=== PATIENT | female | born 1935 | race Caucasian/White ===

== ENCOUNTER 2020-09-26 11:20 | Inpatient (IN) | payer MEDICARE ==
[~2020-09-26] VITALS: Ht 152.4 cm; Wt 59.0 kg
[2020-09-26] MEDS ORDERED: MORPHINE SULFATE INJ 4 MG/ML INJ 1ML IV NR (12:15)
[2020-09-26] MEDS ORDERED: ONDANSETRON HCL INJ 2MG/ML 2ML 2 MG/ML VIAL IV NR (12:15)
[2020-09-26 12:45] LABS: BASOPHILS % 0.6 % (0.0-1.0); EOSINOPHILS # (AUTO) 0.2 (0.0-0.4); EOSINOPHILS % 3.3 % (0.0-6.0); HEMATOCRIT 25.3 % (34.2-44.1); HEMOGLOBIN 12.2 g/dL (12.0-16.0); LYMPHOCYTES # (AUTO) 0.6 (1.0-3.2); LYMPHOCYTES % 11.8 % (18.0-39.1); MEAN CORPUSCULAR HGB CONC 48.2 g/dL (31-35); MEAN CORPUSCULAR VOLUME 95.5 fL (81-99); MONOCYTES # (AUTO) 0.4 (0.2-0.8); MONOCYTES % 8.5 % (4.4-11.3); NEUTROPHILS # (AUTO) 3.6 (2.1-6.9); NEUTROPHILS % 75.4 % (38.7-80.0); PLATELET COUNT 253 x10e3/uL (140-360); RED BLOOD COUNT 2.65 x10e6/uL (3.6-5.1)
[2020-09-26 13:02] LABS: INR 1.48; PARTIAL THROMBOPLASTIN TIME 43.7 seconds (23.8-35.5); PROTHROMBIN TIME 18.6 seconds (11.9-14.5)
[2020-09-26 14:21] LABS: CLARITY,URINE SL CLOUDY (CLEAR); COLOR,URINE YELLOW (YELLOW); KETONES,URINE TRACE (NEGATIVE); LEUKOCYTE ESTERASE ,URINE SMALL (NEGATIVE); NITRITE,URINE NEGATIVE (NEGATIVE); PROTEIN,URINE DIPSTICK TRACE (NEGATIVE); URINE UROBILINOGEN 0.2 mg/dL (0.2 - 1)
[2020-09-26 14:43] LABS: BACTERIA,URINE MANY /HPF
[2020-09-26 14:44] LABS: EPITHELIAL CELLS,URINE FEW /LPF
[2020-09-26] MEDS ORDERED: HYDROMORPHONE 1MG/1ML INJ IV NR (14:44)
[2020-09-26] MEDS ORDERED: ONDANSETRON HCL INJ 2MG/ML 2ML 2 MG/ML VIAL IV PRN (15:15)
[2020-09-26 17:12] LABS: ALANINE AMINOTRANSFERASE 56 IU/L (0-55); ALBUMIN 3.3 g/dL (3.5-5.0); ALBUMIN/GLOBULIN RATIO 1.1 (0.8-2.0); ALKALINE PHOSPHATASE 83 IU/L (40-150); BLOOD UREA NITROGEN 16 mg/dL (7-26); BUN/CREATININE RATIO 20 (6-25); CALCIUM 8.8 mg/dL (8.4-10.2); CARBON DIOXIDE 24 mmol/L (22-29); CHLORIDE 103 mmol/L (98-107); CREATINE KINASE 56 IU/L (29-168); CREATININE, SERUM 0.82 mg/dL (0.57-1.11); EST GLOMERULAR FILTRATION RATE > 60 ML/MIN (60-); GLUCOSE 115 mg/dL (74-118); MAGNESIUM 2.2 MG/DL (1.3-2.1); SODIUM 138 mmol/L (136-145)
[2020-09-26 17:31] LABS: THYROID STIMULATING HORMONE 5.198 uIU/mL (0.350-4.940)
[2020-09-26] MEDS: HYDROMORPHONE 1MG/1ML INJ IV PRN (20:12)
[2020-09-27] MEDS: HYDROMORPHONE 1MG/1ML INJ IV PRN ×4 (00:05→20:46)
[2020-09-27 03:23] LABS: CREATINE KINASE MB 0.8 ng/mL (0-5.0)
[2020-09-27 06:44] LABS: BASOPHILS % 0.3 % (0.0-1.0); EOSINOPHILS % 0.4 % (0.0-6.0); HEMATOCRIT 24.6 % (34.2-44.1); HEMOGLOBIN 12.3 g/dL (12.0-16.0); LYMPHOCYTES # (AUTO) 0.7 (1.0-3.2); LYMPHOCYTES % 9.8 % (18.0-39.1); MEAN CORPUSCULAR HEMOGLOBIN 47.9 pg (28-32); MEAN CORPUSCULAR VOLUME 95.7 fL (81-99); MONOCYTES # (AUTO) 0.8 (0.2-0.8); MONOCYTES % 10.3 % (4.4-11.3); NEUTROPHILS # (AUTO) 5.8 (2.1-6.9); NEUTROPHILS % 78.5 % (38.7-80.0); PLATELET COUNT 255 x10e3/uL (140-360); RED BLOOD COUNT 2.57 x10e6/uL (3.6-5.1); RED CELL DISTRIBUTION WIDTH 13.2 % (11.7-14.4)
[2020-09-27 07:19] LABS: ALANINE AMINOTRANSFERASE 72 IU/L (0-55); ALBUMIN 3.2 g/dL (3.5-5.0); ALBUMIN/GLOBULIN RATIO 0.9 (0.8-2.0); ALKALINE PHOSPHATASE 94 IU/L (40-150); ANION GAP 13.7 mmol/L (8-16); BLOOD UREA NITROGEN 19 mg/dL (7-26); BUN/CREATININE RATIO 24 (6-25); CALCIUM 9.2 mg/dL (8.4-10.2); CARBON DIOXIDE 24 mmol/L (22-29); CHLORIDE 103 mmol/L (98-107); CHOL/HDL RATIO 2.9 (3.0-3.6); CHOLESTEROL 188 MD/DL (0-199); CREATININE, SERUM 0.78 mg/dL (0.57-1.11); EST GLOMERULAR FILTRATION RATE > 60 ML/MIN (60-); GLUCOSE 102 mg/dL (74-118); HDL CHOLESTEROL 65 MG/DL (40-60); LDL CHOLESTEROL 107 MG/DL (60-130); POTASSIUM 4.7 mmol/L (3.5-5.1); SODIUM 136 mmol/L (136-145); TRIGLYCERIDES 78 MG/DL (0-149)
[2020-09-27 07:41] LABS: CREATINE KINASE MB 0.9 ng/mL (0-5.0)
[2020-09-27] MEDS ORDERED: PANTOPRAZOLE SO40 MG PO (08:48)
[2020-09-27] MEDS ORDERED: ATORVASTATIN CA20 MG PO (08:57)
[2020-09-27] MEDS ORDERED: LOPRESSOR25 MG PO (08:57)
[2020-09-27] MEDS ORDERED: CLOBETASOL1 EA/15 GM PO (08:57)
[2020-09-27] MEDS ORDERED: ALPRAZOLAM0.5 MG PO (08:57)
[2020-09-27] MEDS ORDERED: FUROSEMIDE20 MG PO (08:57)
[2020-09-27] MEDS ORDERED: OMEPRAZOLE40 MG PO (08:57)
[2020-09-27] MEDS ORDERED: AMIODARONE HCL200 MG PO (08:57)
[2020-09-27] MEDS ORDERED: FLUVOXAMINE MAL50 MG PO (08:57)
[2020-09-27] MEDS ORDERED: SUCRALFATE1 GM PO (08:57)
[2020-09-27] MEDS ORDERED: AMITRIPTYLINE H50 MG PO (08:57)
[2020-09-27] MEDS: PANTOPRAZOLE SOD 40 MG TABEC PO SCH (09:00)
[2020-09-27] MEDS: ALPRAZOLAM 0.5 MG TAB PO SCH (09:00)
[2020-09-27] MEDS: METOPROLOL TARTRATE 25 MG TAB PO SCH ×2 (09:00→17:00)
[2020-09-27] MEDS: FUROSEMIDE 20 MG TAB PO SCH (09:00)
[2020-09-27] MEDS: AMIODARONE HCL 200 MG TAB PO SCH (09:00)
[2020-09-27] MEDS: SUCRALFATE 1 GM TAB PO SCH ×3 (11:30→20:46)
[2020-09-27] MEDS ORDERED: CEFTRIAXONE SOD 2 GM/100 ML ML IV SCH (12:00)
[2020-09-27] MEDS ORDERED: ONDANSETRON HCL INJ 2MG/ML 2ML 2 MG/ML VIAL IV PRN (12:00)
[2020-09-27] MEDS ORDERED: DOCUSATE SODIUM 100 MG CAP PO PRN (12:00)
[2020-09-27] MEDS ORDERED: ACETAMINOPHEN 325 MG TAB PO PRN (12:00)
[2020-09-27] MEDS: CEFTRIAXONE SOD 1 GM in SODIUM CHLORIDE 0.9% 50ML 50 ML IV SCH (12:15)
[2020-09-27 14:27] VITALS: BP 150/72
[2020-09-27 14:39] VITALS: BP 150/72
[2020-09-27 16:50] VITALS: BP 108/63
[2020-09-27 16:51] LABS: CREATINE KINASE MB 1.4 ng/mL (0-5.0)
[2020-09-27 20:00] VITALS: BP 125/62
[2020-09-27 20:33] VITALS: BP 108/63
[2020-09-27] MEDS: AMITRIPTYLINE HCL 25 MG TAB PO SCH (20:46)
[2020-09-27] MEDS: ATORVASTATIN 20 MG TAB PO SCH (20:46)
[2020-09-27] MEDS ORDERED: ZOLPIDEM TARTRATE 5 MG TAB PO PRN (21:00)
[2020-09-27] MEDS: ZOLPIDEM TARTRATE 5 MG TAB PO PRN (23:50)
[2020-09-28] VITALS (9 sets, daily range): BP systolic 91–118; BP diastolic 50–68
[2020-09-28] MEDS: HYDROMORPHONE 1MG/1ML INJ IV PRN ×2 (03:25→17:29)
[2020-09-28] MEDS: SUCRALFATE 1 GM TAB PO SCH ×4 (07:30→21:54)
[2020-09-28] MEDS ORDERED: HEPARIN SOD/SOD CHLORIDE 1,000 ML ONE (08:37)
[2020-09-28] MEDS: METOPROLOL TARTRATE 25 MG TAB PO SCH ×2 (09:00→17:26)
[2020-09-28] MEDS: ALPRAZOLAM 0.5 MG TAB PO SCH (09:00)
[2020-09-28] MEDS ORDERED: ACETAMINOPHEN 650 MG SUPP PR PRN (09:30)
[2020-09-28] MEDS ORDERED: HYDROCODONE/APAP 5MG-325MG TAB PO PRN (09:30)
[2020-09-28] MEDS ORDERED: ONDANSETRON HCL INJ 2MG/ML 2ML 2 MG/ML VIAL IV PRN (09:30)
[2020-09-28] MEDS ORDERED: DOCUSATE SODIUM 100 MG CAP PO PRN (09:30)
[2020-09-28] MEDS ORDERED: HYDROCODONE/APAP 7.5MG-325MG 1 EA TAB PO PRN (09:30)
[2020-09-28] MEDS ORDERED: SUGAMMADEX SODIUM 200 MG/2 ML VIAL IV ONE (09:36)
[2020-09-28 10:01] LABS: BASOPHILS % 0.5 % (0.0-1.0); EOSINOPHILS # (AUTO) 0.2 (0.0-0.4); EOSINOPHILS % 1.8 % (0.0-6.0); HEMATOCRIT 34.1 % (34.2-44.1); HEMOGLOBIN 11.1 g/dL (12.0-16.0); LYMPHOCYTES # (AUTO) 0.9 (1.0-3.2); MEAN CORPUSCULAR HEMOGLOBIN 30.1 pg (28-32); MEAN CORPUSCULAR HGB CONC 32.6 g/dL (31-35); MEAN CORPUSCULAR VOLUME 92.4 fL (81-99); MONOCYTES # (AUTO) 0.9 (0.2-0.8); MONOCYTES % 10.3 % (4.4-11.3); NEUTROPHILS # (AUTO) 6.8 (2.1-6.9); NEUTROPHILS % 76.9 % (38.7-80.0); PLATELET COUNT 237 x10e3/uL (140-360); RED BLOOD COUNT 3.69 x10e6/uL (3.6-5.1); RED CELL DISTRIBUTION WIDTH 13.1 % (11.7-14.4)
[2020-09-28] MEDS: SODIUM CHLORIDE 0.9% 1000ML 1,000 ML IV SCH ×2 (11:00→22:39)
[2020-09-28] MEDS: FUROSEMIDE 20 MG TAB PO SCH (12:43)
[2020-09-28] MEDS: AMIODARONE HCL 200 MG TAB PO SCH (12:44)
[2020-09-28] MEDS: PANTOPRAZOLE SOD 40 MG TABEC PO SCH (12:45)
[2020-09-28] MEDS ORDERED: PHENYLEPHRINE HCL 1% 10 MG/ML VIAL ONE (12:51)
[2020-09-28] MEDS ORDERED: CEFAZOLIN SOD 1 GM VIAL ONE (12:51)
[2020-09-28] MEDS ORDERED: DEXAMETHASONE SOD PHOS INJ 4 MG/ML VIAL ONE (12:51)
[2020-09-28] MEDS ORDERED: LIDOCAINE HCL 2% LOCAL INJ 5 ML SDV VIAL INJ ONE (12:51)
[2020-09-28] MEDS ORDERED: ROCURONIUM BROMIDE 10 MG/ML 5ML VIAL IV ONE (12:51)
[2020-09-28] MEDS ORDERED: LIDOCAINE HCL 2% JELLY 5 ML TUBE ONE (12:51)
[2020-09-28] MEDS ORDERED: SEVOFLURANE INHAL SOLN 250 ML PEN BTL ONE (12:51)
[2020-09-28] MEDS ORDERED: POVIDONE IODINE 0.05% 0.05 % ML PO ONE (12:51)
[2020-09-28] MEDS ORDERED: ETOMIDATE 2 MG/ML 10 ML INJ IV ONE (12:51)
[2020-09-28] MEDS: CEFTRIAXONE SOD 1 GM in SODIUM CHLORIDE 0.9% 50ML 50 ML IV SCH (13:20)
[2020-09-28] MEDS: KETOROLAC TROMETHAMINE 30 MG/ML VIAL IV PRN ×2 (13:51→22:40)
[2020-09-28] MEDS: DIPHENHYDRAMINE HCL INJ 50 MG/ML VIAL IV PRN ×2 (15:18→22:54)
[2020-09-28] MEDS: ASPIRIN 325 MG TAB PO SCH (17:25)
[2020-09-28] MEDS: CELECOXIB 200 MG CAP PO SCH (17:32)
[2020-09-28] MEDS: CEFAZOLIN SOD 1 GM/NS 50ML 50 ML IV SCH (17:32)
[2020-09-28] MEDS ORDERED: MIDAZOLAM HCL 2 MG/2 ML VIAL ONE (19:21)
[2020-09-28] MEDS: ATORVASTATIN 20 MG TAB PO SCH (21:54)
[2020-09-28] MEDS: AMITRIPTYLINE HCL 25 MG TAB PO SCH (21:54)
[2020-09-28] MEDS: ZOLPIDEM TARTRATE 5 MG TAB PO PRN (22:54)
[2020-09-29] VITALS (7 sets, daily range): BP systolic 92–140; BP diastolic 45–64
[2020-09-29] MEDS: CEFAZOLIN SOD 1 GM/NS 50ML 50 ML IV SCH ×2 (00:30→08:56)
[2020-09-29 04:49] LABS: HEMATOCRIT 24.2 % (34.2-44.1); HEMOGLOBIN 9.4 g/dL (12.0-16.0)
[2020-09-29] MEDS: HYDROMORPHONE 1MG/1ML INJ IV PRN (05:48)
[2020-09-29] MEDS: SODIUM CHLORIDE 0.9% 1000ML 1,000 ML IV SCH ×2 (06:07→20:40)
[2020-09-29] MEDS: SUCRALFATE 1 GM TAB PO SCH ×4 (07:30→20:42)
[2020-09-29] MEDS: FUROSEMIDE 20 MG TAB PO SCH (08:50)
[2020-09-29] MEDS: ASPIRIN 325 MG TAB PO SCH ×2 (08:50→17:29)
[2020-09-29] MEDS: CELECOXIB 200 MG CAP PO SCH ×2 (08:51→17:30)
[2020-09-29] MEDS: AMIODARONE HCL 200 MG TAB PO SCH (08:52)
[2020-09-29] MEDS: PANTOPRAZOLE SOD 40 MG TABEC PO SCH (08:53)
[2020-09-29] MEDS: METOPROLOL TARTRATE 25 MG TAB PO SCH ×2 (08:53→17:30)
[2020-09-29] MEDS ORDERED: ACETAMINOPHEN 1000 MG/100 ML IV PRN (09:30)
[2020-09-29] MEDS ORDERED: ONDANSETRON HCL 4 MG ORAL DISINTEGRATING TAB PO PRN (11:00)
[2020-09-29] MEDS: CEFTRIAXONE SOD 1 GM in SODIUM CHLORIDE 0.9% 50ML 50 ML IV SCH (11:59)
[2020-09-29] MEDS: DIPHENHYDRAMINE HCL INJ 50 MG/ML VIAL IV PRN ×2 (14:56→22:20)
[2020-09-29] MEDS ORDERED: ENOXAPARIN SOD INJ 40 MG/0.4 ML SYR SC SCH (17:00)
[2020-09-29] MEDS: ATORVASTATIN 20 MG TAB PO SCH (20:42)
[2020-09-29] MEDS ORDERED: ALPRAZOLAM 0.5 MG TAB PO PRN (21:00)
[2020-09-29] MEDS: AMITRIPTYLINE HCL 25 MG TAB PO SCH (23:15)
[2020-09-30] VITALS: BP 99/88
[2020-09-30 04:00] VITALS: BP_SYST 118; BP_SYST 135; BP_DIAS 49; BP_DIAS 57
[2020-09-30] MEDS: SODIUM CHLORIDE 0.9% 1000ML 1,000 ML IV SCH (04:00)
[2020-09-30 04:56] LABS: HEMATOCRIT 22.7 % (34.2-44.1); HEMOGLOBIN 7.7 g/dL (12.0-16.0)
[2020-09-30 09:00] VITALS: BP 89/48
[2020-09-30] MEDS: PANTOPRAZOLE SOD 40 MG TABEC PO SCH (09:00)
[2020-09-30] MEDS: AMIODARONE HCL 200 MG TAB PO SCH (09:00)
[2020-09-30] MEDS: FUROSEMIDE 20 MG TAB PO SCH (09:00)
[2020-09-30] MEDS: ASPIRIN 325 MG TAB PO SCH (09:00)
[2020-09-30] MEDS: CELECOXIB 200 MG CAP PO SCH (09:00)
[2020-09-30 09:09] VITALS: BP 108/68
== END 2020-09-30 09:50 | DRG 481 ==
LOC: ER 11:43 → ERHOLD 15:13 → MED/SURG2 09-27 14:00
PROVIDERS: ADMIT Internal Medicine; ATTEND Internal Medicine
PROC: 0QS706Z Reposition Left Upper Femur with Intramedullary Internal Fixation Device, Open Approach (ICD-10-PCS; principal; 2020-09-26)
DX: S72.092A Other fracture of head and neck of left femur, initial encounter for closed fracture (principal); D62 Acute posthemorrhagic anemia; N39.0 Urinary tract infection, site not specified; J81.1 Chronic pulmonary edema; J44.9 Chronic obstructive pulmonary disease, unspecified; W19.XXXA Unspecified fall, initial encounter; Z20.822 Contact with and (suspected) exposure to COVID-19; G47.00 Insomnia, unspecified; I13.10 Hypertensive heart and chronic kidney disease without heart failure, with stage 1 through stage 4 chronic kidney disease, or unspecified chronic kidney disease; N18.30 Chronic kidney disease, stage 3 unspecified; B96.89 Other specified bacterial agents as the cause of diseases classified elsewhere; F41.1 Generalized anxiety disorder; I48.0 Paroxysmal atrial fibrillation; Z79.01 Long term (current) use of anticoagulants; Y93.9 Activity, unspecified; Y92.099 Unspecified place in other non-institutional residence as the place of occurrence of the external cause
CPT/HCPCS: 36415; 51700; 70450; 71045; 72125; 76000; 80053; 80061; 81001; 82550; 82553; 83735; 83880; 84443; 84484; 85014; 85018; 85025; 85610; 85730; 86850; 86900; 86920; 87086; 87186; 93005; 93306; 96360; 97139; 99285; C1713; J0690; J0696; J1100; J1170; J1200; J1650; J1885; J2001; J2250; J2270; J2370; J2405; J7030; U0002